=== PATIENT | male | born 1985 | race African-American/Black ===

== ENCOUNTER 2019-04-15 02:07 | Emergency (ER) | payer BC ==
[~2019-04-15] VITALS: Ht 177.8 cm; Wt 90.7 kg
--- NOTE | 2019-04-15 02:33 | NUR ---
PT BIBS. AAOX4. AMBULATORY. PT C/O DIFFICULTY SWALLOWING X 1 WEEKS WORST TODAY. PER PATIENT "I WOKE UP AT NIGHT GASPING FOR AIR." PT ABLE TO SPEAK IN FULL SENTENCES. BREATHING EVEN AND UNLABORED. PT PLACED ON MONITOR AND PULSE OX. VSS. AWAITING MD FOR EVAL.
--- NOTE | 2019-04-15 02:57 | NUR ---
PT BROUGHT TO XRAY.
--- NOTE | 2019-04-15 03:37 | NUR ---
Patient discharged to home in stable condition. Written and verbal after care instructions given. Patient verbalizes understanding of instruction. PT ambulatory with a steady gait.
[2019-04-15 03:40] VITALS: BP 128/86
== END 2019-04-15 03:40 | disposition home or self-care (01) ==
LOC: ER 02:09
DX: G47.30 Sleep apnea, unspecified (principal); R68.2 Dry mouth, unspecified; F10.10 Alcohol abuse, uncomplicated; Y90.9 Presence of alcohol in blood, level not specified; Z98.890 Other specified postprocedural states
CPT/HCPCS: 70360-TC